=== PATIENT | female | born 1940 | race Caucasian/White ===

== ENCOUNTER 2016-10-07 17:13 | Inpatient (IN) | payer MEDICARE, OTHER ==
--- NOTE | ~2016-10-07 | CO ---
Unit #: [id number] #: [id number] Patient: JULITA BOYCE [id number] [address] [place], [place] [address] [id number] I MR#: [id number] NAME: JULITA BOYCE ROOM: 547 Age: 76 Sex: F Admission Date: 10/07/2016 : 1940 Attending Physician: Xi Rider M.D. Primary Care Physician: Luis Means M.D. Consultation Date: 10/08/2016 CONSULTATION REPORT REASON FOR CONSULT Hypoxia. HISTORY OF PRESENT ILLNESS This is a very pleasant 76-year-old female with past medical history significant for morbid obesity, obstructive sleep apnea, hypertension and hyperlipidemia who presented to the emergency room with shortness of breath. The patient stated that she is being progressively getting dyspneic for the last 4 days associated with intermittent cough productive sometimes of dark sputum. She denies any fever, chills or night sweats. Of note, also, she stated that she has been noticing bilateral lower extremity edema for a while. She denies taking any diuretics at home or having a history of congestive heart failure. In the emergency room her saturation was significantly low, and her pO2 was 56 on Venturi mask. PAST MEDICAL HISTORY 1. Morbid obesity. 2. Seizure disorder. 3. Obstructive sleep apnea. 4. Questionable COPD. 5. TIA. 6. Hypertension. 7. Hyperlipidemia. PAST SURGICAL HISTORY 1. Hysterectomy. 2. Bladder surgery. 3. Right foot surgery. SOCIAL HISTORY Patient is a former smoker. No history of alcohol or drug abuse. She stated that she quit smoking 3 years ago, but she smoked for a long time. FAMILY HISTORY [place]. ALLERGIES No known drug allergies. HOME MEDICATIONS 1. HCTZ. 2. Dilantin. Unit #: [id number] #: [id number] Patient: JULITA BOYCE 3. Simvastatin. REVIEW OF SYSTEMS Twelve-point review of systems was obtained and was negative except for what was mentioned in the HPI. PHYSICAL EXAMINATION GENERAL: The patient is in no acute distress, but she appears dyspneic, even on minimal activity. VITAL SIGNS: Blood pressure 132/61, respiratory rate 18, O2 saturation 96% on 8 liters Oxymizer. HEENT: Atraumatic, normocephalic. PERRLA, EOMI. NECK: Supple. No JVD. No lymphadenopathy. CHEST: Bilateral coarse rhonchi. HEART: S1, S2. No murmur. ABDOMEN: Soft, nontender. Bowel sounds positive. No hepatosplenomegaly. EXTREMITIES: With +1 edema in the lower extremities. SKIN: No rashes. OFFICE CHAIR ASSEMBLER: Awake, alert, oriented x3. No focal motor/sensory deficits. LABS AND OTHER TESTS LABS: Creatinine is 0.9, calcium 8. White blood count 21.9, platelets 248. IMAGING: Chest x-ray is consistent with bilateral pneumonia. ASSESSMENT 1. Acute hypoxic respiratory failure. 2. Community-acquired pneumonia, gram-positive/atypical. 3. Rule out diastolic congestive heart failure. 4. Obstructive sleep apnea. 5. Morbid obesity. 6. Chronic anemia. 7. History of seizure. PLAN 1. The patient is currently on high amount of oxygen, up to 8 liter Oxymizer. Her chest x-ray is significant for diffuse bilateral dense pneumonia. 2. Will continue the patient on Rocephin and azithromycin pending culture. 3. I will start the patient on IV Bumex pending two-D echo and BNP; however, will keep in mind that BNP could be normal in obese patients. 4. Bronchodilator and mucolytics. 5. I will add IV steroid. 6. Counselled regarding importance of obtaining a sleep study as an outpatient. 7. PFTs and tapyj-2-ewerioguiom screening as an outpatient. 8. DVT prophylaxis. NOTE: I would like to thank you for allowing me to be part of this patient's care. Dictated by... Noel Shukla M.D. Unit #: [id number] #: [id number] Patient: JULITA BOYCE OLGA/vipul TD: 10/09/2016 13:37 JOB #: [id number] CONSULTATION REPORT Page 1 of 1 X NOEL SCHWARZ MD CONSULTATION REPORT
--- NOTE | ~2016-10-07 | CR63 ---
[facility] A Service of [facility] RADIOLOGY TEXT RESULTS PATIENT: JULITA BOYCE LOCATION: C2A 218-01 : 40 UNIT #: [id number] AGE: [address]: Brady Celaya MD SEX: F ORDER DR: [id number] [facility] [address] [place], [place] [address] [id number] I MR#: [id number] Acc #: [id number] NAME: JULITA BOYCE. : 1940 SEX: F STUDY DATE/TIME: 10/14/2016 12:55 UNIT: [facility] ROOM: 218 STUDY DESCRIPTION: CR Chest 2 View Attending Physician: Brady Celaya M.D. Ordering Physician: Lb Shukla M.D. Primary Care Physician: Luis Means M.D. MEDICAL IMAGING REPORT This report is preliminary unless electronic signature is present EXAM Two-view chest, 10/14/2016. HISTORY Evaluate for emphysema. Short of air. Began 10/04/2016, 12 days ago. History of stroke and high cholesterol. TECHNIQUE AP and lateral radiographs of the chest are presented. COMPARISON 10/07/2016. Comparison also made to CT examination 10/10/2016. FINDINGS No acute-appearing bony abnormality seen. There is stable cardiac enlargement. The left lung shows increased left retrocardiac density concerning for increased airspace disease in this region. Nonspecific appearance which could involve components of atelectasis and pneumonia. The right lung shows improved airspace disease in the right upper lobe. More band-like densities in the lower portion of the right upper lobe probably reflect atelectasis and some components of ongoing pneumonia in this region. Continued followup to resolution is recommended. There is decreased patchy airspace disease at the right lung base but there continues to be dense right infrahilar opacification. Prior CT examination showed soft tissue density in this region of unclear exact etiology, possibly adenopathy or possibly infrahilar mass lesion. If the patient is a candidate for iodinated contrast material, the right infrahilar region would best be further evaluated with contrast-enhanced CT examination. Certainly continued short-interval plain radiographic followup is strongly recommended. There is no pneumothorax. There is no definite pleural effusion. [facility] A Service of [facility] RADIOLOGY TEXT RESULTS PATIENT: JULITA BOYCE LOCATION: [facility] 218-01 : 40 UNIT #: [id number] AGE: [address]: Brady Celaya MD SEX: F ORDER DR: Dictated by... Milton David M.D. THIS IS AN ELECTRONICALLY VERIFIED REPORT Milton David M.D. at 10/15/2016 6:42 PM ALAN/talon TD: 10/14/2016 16:55 JOB #: [id number] MEDICAL IMAGING REPORT Page 1 of 1 COPY
--- NOTE | ~2016-10-07 | CR72 ---
[facility] A Service of [facility] & [facility] RADIOLOGY TEXT RESULTS PATIENT: JULITA BOYCE LOCATION: [place] [address] : 40 UNIT #: [id number] AGE: [address]: Xi Rider MD SEX: F ORDER DR: [id number] [facility] [address] [place], [place] [address] [id number] E MR#: [id number] Acc #: [id number] NAME: JULITA BOYCE. : 1940 SEX: F STUDY DATE/TIME: 10/07/2016 17:59 UNIT: [facility] ROOM: STUDY DESCRIPTION: CR Chest Single View Portable Attending Physician: Nathan Roberts M.D. Ordering Physician: Nathan Roberts M.D. Primary Care Physician: Luis Means M.D. MEDICAL IMAGING REPORT This report is preliminary unless electronic signature is present EXAM Portable chest. HISTORY Shortness of air x4 days. History of stroke, symptoms worse today. COMPARISON 07/15/16 FINDINGS Portable view of the chest demonstrates extensive parenchymal opacity in the right upper lobe most concerning for developing right upper lobe pneumonia. Probable small amount of right-sided pleural fluid. Small amount of right basilar atelectasis or infiltrate. The left lung remains here clear. Stable cardiomegaly and mild aortic atherosclerotic change. No invasive tubes or lines. No pneumothorax. Dictated by... Callum London M.D. THIS IS AN ELECTRONICALLY VERIFIED REPORT Callum London M.D. at 10/08/2016 2:46 PM Alem TD: 10/07/2016 18:49 JOB #: [id number] MEDICAL IMAGING REPORT Page 1 of 1 COPY
--- NOTE | ~2016-10-07 | CT57 ---
[facility] A Service of [facility] RADIOLOGY TEXT RESULTS PATIENT: JULITA BOYCE LOCATION: [facility] 218-01 : 40 UNIT #: [id number] AGE: [address]: Xi Rider MD SEX: F ORDER DR: [id number] [facility] [address] [place], [place] [address] [id number] I MR#: [id number] Acc #: [id number] NAME: JULITA BOYCE. : 1940 SEX: F STUDY DATE/TIME: 10/10/2016 17:12 UNIT: C5B ROOM: [facility] STUDY DESCRIPTION: CT Chest Wo Cont Attending Physician: Xi Rider M.D. Ordering Physician: Jp Anne M.D. Primary Care Physician: Luis Means M.D. MEDICAL IMAGING REPORT This report is preliminary unless electronic signature is present EXAM CT chest without contrast. HISTORY Shortness of air for 4 days, history of hypertension, stroke. FINDINGS Axial images performed through the chest without contrast. Multiplanar reconstructed images reviewed at a workstation. This CT exam was performed with one or more of the following radiation dose reduction techniques: automatic exposure control, adjustment of mA and/or kV according to patient size, and iterative reconstruction. There is extensive airspace disease right upper lobe and also within the posterior segment right lower lobe may represent acute infectious pneumonia. There is a small right pleural effusion. This appears superimposed on background centrilobular emphysema and paraseptal emphysema. Trachea and bronchi unremarkable. Mild cardiomegaly. There is prominence of the right infrahilar vessels and tissue and this could represent adenopathy and/or mass. Recommend imaging follow up following appropriate treatment of the patient's pneumonia. There is some patchy peripheral opacities left lung. Visualized upper abdomen unremarkable. Cortical scarring noted in the right kidney. Osseous structures, thoracic inlet unremarkable. IMPRESSION 1. Extensive airspace disease right upper lobe and also within the right lower lobe posterior segment. This is most likely infectious in etiology. Recommend clinical imaging follow up to resolution. This appears superimposed on background emphysema. 2. Prominence of the right infrahilar vessels and tissues. It is unclear whether this represents adenopathy or mass. Imaging follow up with contrasted chest CT following appropriate medical therapy and STS. [facility] A Service of [facility] RADIOLOGY TEXT RESULTS PATIENT: JULITA BOYCE LOCATION: [place] [address] : 40 UNIT #: [id number] AGE: [address]: Xi Rider MD SEX: F ORDER DR: clearing of the patient's airspace disease is recommended to exclude underlying mass lesion. Dictated by... Callum London M.D. THIS IS AN ELECTRONICALLY VERIFIED REPORT Callum London M.D. at 10/11/2016 9:15 PM Alem TD: 10/10/2016 21:21 JOB #: [id number] MEDICAL IMAGING REPORT Page 1 of 1 COPY
--- NOTE | ~2016-10-07 | OR ---
Unit #: [id number] #: [id number] Patient: JULITA BOYCE [id number] [address] [place], [place] [address] [id number] I MR#: [id number] NAME: JULITA BOYCE. ROOM: 218 Date of Procedure: 10/12/2016 Admission Date: 10/07/2016 Surgeon: Noel Shukla M.D. : 1940 Attending Physician: Brady Celaya M.D. Primary Care Physician: Luis Means M.D. PROCEDURE OPERATIVE NOTE POSTOPERATIVE DIAGNOSES 1. Diffuse thick yellowish mucous secretions at the level of the jose, right main bronchus, right lower lobe, mildly in the right upper lobe, left lower lobe. 2. No over endobronchial mass. PROCEDURE PERFORMED Diagnostic bronchoscopy with bronchoalveolar lavage from the right upper lobe. INDICATION FOR PROCEDURE Pneumonia and rule out endobronchial mass. PREMEDICATION MAC sedation. COMPLICATIONS None. DESCRIPTION OF THE PROCEDURE An informed consent was obtained from the patient herself after explaining the benefits and risks of this procedure. The patient was prepped and positioned in a proper way and her throat was sprayed with lidocaine. Then, she was premedicated with propofol. Then, the bronchoscope was advanced through the oral cavity and, at the level of the vocal cord, 10 mL of 2% lidocaine was instilled. Then, the bronchoscope was advanced through the vocal cord into the trachea and then, at the level of the jose, 1% lidocaine was instilled. Then, the bronchoscope was advanced into the right main bronchus and the right upper lobe, right lower lobe and right middle lobe were examined thoroughly. Then, the bronchoscope was retracted and then readvanced into the left main bronchus and the left upper lobe, lingula and left lower lobe were examined also thoroughly. Then, the bronchoscope was retracted to the level of the jose and then examined in the trachea, again. Findings as above. The patient had no endobronchial mass but had a lot of secretions. The bronchoscope was retracted completely out and the patient tolerated her procedure well with no immediate complication. Unit #: [id number] #: [id number] Patient: JULITA BOYCE Dictated by... Noel Shukla M.D. EA/dash TD: 10/12/2016 09:35 JOB #: [id number] PROCEDURE OPERATIVE NOTE Page 1 of 1 X NOEL SCHWARZ MD X PROCEDURE OPERATIVE NOTE
--- NOTE | ~2016-10-07 | DS ---
Unit #: [id number] #: [id number] Patient: JULITA BOYCE [id number] [place] [address] [facility]. [place], [place] [address] [id number] I MR#: [id number] NAME: JULITA BOYCE. ROOM: 218 Age: 76 Sex: F Admission Date: 10/07/2016 : 1940 Discharge Date: 10/14/2016 Attending Physician: Brady Celaya M.D. Primary Care Physician: Luis Means M.D. DISCHARGE SUMMARY DISCHARGE DIAGNOSES 1. Acute hypoxic respiratory failure. 2. Pneumonia. 3. Acute exacerbation of chronic obstructive pulmonary disease. 4. Rvwzt-lk-cursato diastolic heart failure. 5. Pulmonary hypertension. 6. Obstructive sleep apnea. HOSPITAL COURSE The patient is a 76-year-old female with COPD who presented to [facility] emergency department secondary to some shortness of air that began 4 days prior to presentation. By the time she arrived to the emergency department, she was noted to be saturating 88% on 4 liters. As a result she was placed on 50% Venturi mask and arterial blood gas showed a pO2 of 56. Chest x-ray was concerning for pneumonia and procalcitonin was elevated at 2.31 consistent with the same. Patient was admitted started on IV antibiotics Rocephin and Zithromax. The patient has been slow to improve but has indeed improved. The following admission, she was weaned to Oxymizer. She remained on Oxymizer for 3 days and at this time has been on nasal cannula for 4 days. Her oxygen needs do remain high at 5 liters. She does saturate in the 80s with ambulation. Room air oxygen saturations are in the low 80s. Repeat chest x-ray is relatively unchanged and patient is noted on CT to have extensive airspace disease in the right upper lobe and within the right lower lobe posterior segment. She is noted to have prominence of the right infrahilar vessels and tissues. It is unclear whether it was adenopathy or mass. A followup CT is recommended. At this time, the patient is requesting discharge. She is felt reasonably safe to go home on nasal cannula at 5 liters and with home health. She is being discharged on four more days of oral antibiotics, a prednisone taper and Bumex for her diastolic heart failure/pulmonary hypertension. The patient is, however, being discharged simply because she has requested discharge and states that she does not want to be here any longer. She was offered the opportunity to continue her convalescence but has adamantly refused. This has been discussed with both her and her . I have discussed this with Dr. Shukla who also agrees with her discharge after again informing her that provided that it is her choice. She might otherwise benefit from rehab. DISCHARGE MEDICATIONS 1. Combivent two puffs t.i.d. Unit #: [id number] #: [id number] Patient: JULITA BOYCE 2. Prednisone taper. 3. Lotrel 10/40 one p.o. daily. 4. Bumex 1 mg p.o. b.i.d. 5. Zocor 20 mg daily. 6. Dilantin 400 mg p.o. h.s. 7. Plavix 75 mg daily. 8. Potassium chloride 20 mEq p.o. daily. 9. Omnicef 300 mg p.o. b.i.d. times 4 more days. FOLLOWUP 1. The patient is being discharged home with home health and home oxygen. 2. She should follow up with Dr. Jp Anne in one week. 3. She should follow up with her primary care provider at the earliest available appointment. Dictated by... Brady Celaya M.D. NIC/effie TD: 10/15/2016 18:06 JOB #: [id number] DISCHARGE SUMMARY Page 1 of 1 X Brady Celaya MD X DISCHARGE SUMMARY
--- NOTE | ~2016-10-07 | HP ---
Unit #: [id number] #: [id number] Patient: JULITA BOYCE [id number] [address] [address] [id number] I MR#: [id number] NAME: JULITA BOYCE. ROOM: 547 Age: 76 Sex: F Admission Date: 10/07/2016 : 1940 Attending Physician: Domi Welch M.D. Primary Care Physician: Luis Means M.D. HISTORY AND PHYSICAL CHIEF COMPLAINT Shortness of air x4 days. HISTORY OF PRESENT ILLNESS The patient is a 76-year-old female with a past medical history of seizure disorder, obstructive sleep apnea, hypertension, hyperlipidemia who presented to the emergency department for evaluation of the above. The patient has had a 3 to 4 day history of increasing shortness of breath and intermittently productive cough. She denies any fever. She did have chest pain in association with cough during the course of her evaluation in the emergency department. She has had decreased appetite but no vomiting or diarrhea. No urinary symptoms aside from decreased urine output. In the emergency department, oxygen saturation was 88% on 4 L. She was placed on 50% Venturi mask. Initial arterial blood gas showed pH of 7.471, pCO2 32.4, pO2 of 56.5. Chest x-ray shows findings concerning for pneumonia. She was given Rocephin and azithromycin in the emergency department, as well as 1 liter of normal saline, 125 mg of Solu-Medrol. She is being admitted to [facility] for evaluation and further treatment. PAST MEDICAL HISTORY 1. Admission to [facility] 03/26/2014 through 03/30/2014 for pneumonia and respiratory failure. Per the discharge summary there was some question of memory issues. She was apparently see by Dr. Wood and advised to followup on an outpatient basis with Dr. Obregon. She did not followup. 2. Seizure disorder maintained on Dilantin. The patient's last seizure was more than 10 years ago. She does not currently see a neurologist. 3. Obstructive sleep apnea, not on CPAP. 4. Likely COPD. 5. TIA. 6. Hypertension. 7. Hyperlipidemia. PAST SURGICAL HISTORY 1. Hysterectomy. 2. Bladder surgery. 3. Right foot surgery. SOCIAL HISTORY The patient lives with her . She is a former smoker. There is no Unit #: [id number] #: [id number] Patient: JULITA BOYCE alcohol use. She walks without assistance. Her code status is a full code. FAMILY HISTORY Notable for her mother dying of a myocardial infarction in her 60s. ALLERGIES No known allergies. HOME MEDICATIONS Dilantin, hydrochlorothiazide, Lotrel, Plavix, simvastatin. Home medications will need to be reviewed and verified. REVIEW OF SYSTEMS A complete review of systems is negative except as indicated in the HPI. PHYSICAL EXAMINATION VITAL SIGNS: Temperature is 100.7, pulse 114, respirations 22, blood pressure 129/93, oxygen saturation 88% on 4 L. GENERAL: The patient is a female who is awake and alert. HEENT: Head is atraumatic. Mucous membranes are moist. NECK: Supple. Trachea is midline. CARDIOVASCULAR: Regular rate and rhythm. LUNGS: Demonstrate a few scattered expiratory wheezes. Breathing is mildly labored. The patient is currently on 50% Venturi mask and continues to take the mask off during the time of my evaluation. ABDOMEN: Soft, nontender with bowel sounds present in all four quadrants. EXTREMITIES: Show 1+ pitting edema bilaterally. NEUROLOGIC: The patient is oriented to person only. She follows commands. PSYCH: Mood and affect are normal. The patient is cooperative. SKIN: Skin of examined areas is warm and dry. DIAGNOSTIC STUDIES CARDIOLOGY STUDIES: EKG shows sinus tachycardia with a rate of 110 BPM. IMAGING STUDIES: Chest x-ray shows extensive parenchymal opacity in the right upper lobe concerning for right upper lobe pneumonia with probable small right-sided pleural fluid. LABORATORY STUDIES: Arterial blood gas shows pH 7.471, pCO2 32.4, pO2 56.5 on 50% Venturi mask. Troponin is less than 0.05. Complete blood count is notable for white blood cell count of 19.1, lactic acid 1.7. Dilantin level 6.7. Comprehensive metabolic panel notable for a chloride of 98, glucose 187, BUN and creatinine 27 and 1 respectively, calcium is 8.3, AST 47, albumin 3.2, BNP is 132. ASSESSMENT The patient is a 76-year-old female with 1. Acute respiratory failure, hypoxic. 2. Pneumonia, community acquired. The patient received Rocephin and azithromycin in the emergency department. 3. Sepsis with initial lactic acid of 1.7. The patient received 1 liter of normal saline in the emergency department. 4. Likely COPD with exacerbation. The patent received 125 mg of Solu-Medrol in the emergency department. 5. Altered mental status. The patient's states that at baseline she "does not keep track of dates." But would typically know the year. 6. Seizure disorder maintained on Dilantin. Unit #: [id number] #: [id number] Patient: JULITA BOYCE 7. Obstructive sleep apnea, noncompliant with CPAP. 8. Hypertension. 9. Hyperlipidemia. 10. Former smoker. PLANS 1. Admit to an intermediate level. 2. Normal saline at 100 mL an hour. 3. Change to Oxymizer. 4. Repeat ABG 30 minutes after Oxymizer placed. 5. Consult Dr. Edwards regarding acute respiratory failure. 6. Blood cultures x2. 7. Sputum culture and sensitivity. 8. Procalcitonin level. 9. Rocephin and azithromycin for community acquired pneumonia pending further workup. 10. DuoNeb. 11. Solu-Medrol 80 mg IV q.12 hours. 12. Sepsis protocol with repeat lactic acid. 13. Serial cardiac enzymes. 14. TSH, B12, and folate. 15. Neuro checks. 16. Bedrest. 17. Fall precautions. 18. Check urinalysis. 19. Repeat labs in the morning. 20. P.R.N. Tylenol. 21. Additional workup and consultants based on above. 22. Regarding code status the patient is a full code. 11. 1. Dictated by Domi Welch M.D. TONG/carmella TD: 10/08/2016 06:00 JOB #: [id number] HISTORY AND PHYSICAL Page 1 of 1 X Domi Welch MD X HISTORY AND PHYSICAL
--- NOTE | ~2016-10-07 | EKG ---
PATIENT: JULITA BOYCE UNIT #: [id number] Ventricular Rate: 110 BPM Atrial Rate: 110 BPM P-R Interval: 146 ms QRS Duration: 74 ms Q-T Interval: 310 ms QTC Calculation(Bezet): 419 ms P Mitchells: 101 degrees Calculated R Mitchells: 13 degrees Calculated T Mitchells: 26 degrees Diagnosis Line: Sinus tachycardia Diagnosis Line: Otherwise normal ECG Diagnosis Line: When compared with ECG of 26-MAR-2014 08:07, Diagnosis Line: No significant change was found Diagnosis Line: Confirmed by JAM SWANSON MD ([id number]) on Diagnosis Line: 10/08/2016 7:29:48 AM INTERPRETING MURIEL MALONE
--- NOTE | ~2016-10-07 | BMI ---
[facility] Nutrition Therapy DATE: 10/08/16 Patient: JULITA BOYCE Physician: ITZ Address: [address] Room/Bed: [address] [place] [address], Zip: [place] [address] Admit Date: 10/07/16 Date of : 40 Height: 5 8 Weight: 283 128.4 HIGH BMI NOTE: DX: 76 Y.O. FEMALE ADMITTED FOR SOA X 4 DAYS ANTHROPOMETRICS: 5'8", WT: 283# (129 KG), BMI: 43.0 DIET: HEALTHY HEART + VEGETARIAN DIET RECOMMENDATIONS: 1. CONTINUE CURRENT DIET ORDER ABOVE TO PROMOTE GRADUAL WEIGHT LOSS TOWARDS HEALTHY BMI (19.0-25.0) OR +/-10%IBW RD WILL F/U PER PROTOCOL Respectfully, NGUYEN HARMON MS, RD, LD [facility] Nutrition[facility] cc: client file
[~2016-10-07 17:13] MED LIST: AZITHROMYCIN500 MG PO; CEFTIN PO; COMBIVENT RESPIM4 GM IH; DILANTIN PO; HTN MEDS; LOTREL 10-40 M1 EACH PO; NAPROSYN-EC500 MG PO; PLAVIX PO; TYLENOL325 M1 PO; ZOCOR PO
[2016-10-07 17:50] LABS: ARTERIAL BLOOD GAS pH 7.471 (7.350-7.450)
[2016-10-07 17:51] LABS: ARTERIAL BLD GAS O2 SATURATION 89.9 % (90.0-100.0); ARTERIAL BLOOD GAS ALLEN TEST NORMAL; ARTERIAL BLOOD GAS ART SITE RIGHT RADIAL; ARTERIAL BLOOD GAS CARBOXY HB 1.7 %sat (0.0-9.0); ARTERIAL BLOOD GAS DELIVERY VENTURI MASK; ARTERIAL BLOOD GAS HCO3 23.6 mmol/L; ARTERIAL BLOOD GAS MET HB 0.6 %sat (0.0-2.0); ARTERIAL BLOOD GAS PCO2 32.4 mmHg (35.0-45.0); ARTERIAL BLOOD GAS PO2 56.5 mmHg (80.0-100); ARTERIAL DRAW? YES
[2016-10-07 18:11] LABS: POC - CKMB <1.0 ng/mL (0.0-7.9); POC - TROPONIN <0.05 ng/mL (<=0.05)
[2016-10-07 18:23] LABS: BASOPHIL# 0.1 X10e3 (0-0.3); BASOPHIL% 0.4 % (0-2.5); EOSINOPHIL% 0.1 % (0.0-7.0); HEMATOCRIT 37.9 % (35.0-45.0); HEMOGLOBIN 12.1 gm/dL (12.0-16.0); LYMPHOCYTE# 6.8 X10e3 (1.0-3.5); LYMPHOCYTE% 35.3 % (17.0-45.0); MEAN CELL VOLUME 86.3 FL (83-96); MEAN CORPUSCULAR HEMOGLOBIN 27.5 PG (28-34); MEAN CORPUSCULAR HGB CONC 31.9 g/dL (30-36); MEAN PLATELET VOLUME 8.4 FL (6.5-11.5); MONOCYTE# 1.5 X10e3 (0-1.0); MONOCYTE% 7.7 % (3.0-12.0); NEUTROPHIL# 10.8 X10e3 (1.5-7.1); NEUTROPHIL% 56.5 % (40-75); PLATELET COUNT 237 X10e3 (140-420); RED BLOOD COUNT 4.39 X10e (3.90-5.30); WHITE BLOOD COUNT 19.1 X10e3 (4.0-10.5)
[2016-10-07 18:25] LABS: DIFF IND YES
[2016-10-07 18:52] LABS: ALBUMIN SERUM 3.2 g/dL (3.5-5.0); BILIRUBIN, DIRECT 0.5 mg/dL (0.0-0.2); BILIRUBIN,INDIRECT 0.9 mg/dL (0.0-0.9); BILIRUBIN,TOTAL 1.4 mg/dL (0.2-2.0); CALCIUM SERUM 8.3 mg/dL (8.4-10.2); GLOM FILT RATE Estimated 54.7 mL/min (>60); POTASSIUM 4.1 mmol/L (3.5-5.1); PROTEIN TOTAL SERUM 6.9 g/dL (6.0-8.3)
[2016-10-07 19:04] LABS: INR 1.2; PARTIAL THROMBOPLASTIN TIME 29.4 SECONDS (23.5-31.3); PROTHROMBIN TIME (PATIENT) 12.6 SECONDS (10.0-11.7)
[2016-10-07 19:07] LABS: PLATELET ESTIMATE NORMAL (NORMAL)
[2016-10-07 20:17] LABS: ARTERIAL BLD GAS O2 SATURATION 92.2 % (90.0-100.0); ARTERIAL BLOOD GAS CARBOXY HB 1.7 %sat (0.0-9.0); ARTERIAL BLOOD GAS HCO3 23.2 mmol/L; ARTERIAL BLOOD GAS PCO2 35.8 mmHg (35.0-45.0); ARTERIAL BLOOD GAS PO2 69.4 mmHg (80.0-100); ARTERIAL BLOOD GAS pH 7.421 (7.350-7.450)
[2016-10-07 20:18] LABS: ARTERIAL BLOOD GAS ALLEN TEST NORMAL; ARTERIAL BLOOD GAS ART SITE LEFT RADIAL; ARTERIAL BLOOD GAS DELIVERY OXYMIZER; ARTERIAL BLOOD GAS MET HB 0.7 %sat (0.0-2.0); ARTERIAL DRAW? YES
[2016-10-07 21:14] LABS: PROCALCITONIN 2.31 NG/ML
[2016-10-07 21:35] LABS: FOLATE (FOLIC ACID) >23.3 ng/mL (>5.8)
[2016-10-08 00:47] LABS: CK TOTAL 45 IU/L (26-140)
[2016-10-08 03:14] LABS: URINE SOURCE CLEAN CATCH
[2016-10-08 03:24] LABS: URINE APPEARANCE CLOUDY; URINE BLOOD NEG (NEG); URINE COLOR DK YELLOW; URINE GLUCOSE NEG (NEG); URINE KETONE TRACE (NEG); URINE LEUKOCYTE ESTERASE TRACE (NEG); URINE NITRATE NEG (NEG); URINE PROTEIN 1+ (NEG); URINE SPECIFIC GRAVITY 1.026 (1.003-1.035)
[2016-10-08 03:25] LABS: URINE BACTERIA AUWI NEG (NEGATIVE); URINE SQUAMOUS EPITHELIAL CELL MOD /[HPF]
[2016-10-08 03:42] LABS: URINE BILIRUBIN NEG (NEG)
[2016-10-08 06:29] LABS: HEMATOCRIT 33.6 % (35.0-45.0); HEMOGLOBIN 10.8 gm/dL (12.0-16.0); MEAN CELL VOLUME 85.9 FL (83-96); MEAN CORPUSCULAR HEMOGLOBIN 27.6 PG (28-34); MEAN CORPUSCULAR HGB CONC 32.1 g/dL (30-36); MEAN PLATELET VOLUME 8.1 FL (6.5-11.5); RED BLOOD COUNT 3.91 X10e (3.90-5.30); RED CELL DISTRIBUTION WIDTH 20.1 % (11.0-15.5); WHITE BLOOD COUNT 20.4 X10e3 (4.0-10.5)
[2016-10-08 07:12] LABS: CK TOTAL 52 IU/L (26-140)
[2016-10-08 07:47] LABS: ALBUMIN SERUM 2.6 g/dL (3.5-5.0); BILIRUBIN,TOTAL 0.7 mg/dL (0.2-2.0); CALCIUM SERUM 7.8 mg/dL (8.4-10.2); CREATININE SERUM 0.8 mg/dL (0.6-1.4); GLOM FILT RATE Estimated 71.7 mL/min (>60); POTASSIUM 3.6 mmol/L (3.5-5.1); PROTEIN TOTAL SERUM 5.7 g/dL (6.0-8.3)
[2016-10-09 06:39] LABS: BUN/CREATININE RATIO 31.11; CREATININE SERUM 0.9 mg/dL (0.6-1.4); GLOM FILT RATE Estimated 62.2 mL/min (>60); MAGNESIUM 2.2 mg/dL (1.6-3.0); POTASSIUM 3.5 mmol/L (3.5-5.1)
[2016-10-09 07:58] LABS: LEGIONELLA AG URINE NEG (NEG)
[2016-10-09 08:14] LABS: HEMATOCRIT 33.8 % (35.0-45.0); HEMOGLOBIN 10.6 gm/dL (12.0-16.0); MEAN CELL VOLUME 85.6 FL (83-96); MEAN CORPUSCULAR HEMOGLOBIN 26.9 PG (28-34); MEAN CORPUSCULAR HGB CONC 31.5 g/dL (30-36); RED BLOOD COUNT 3.94 X10e (3.90-5.30); RED CELL DISTRIBUTION WIDTH 19.8 % (11.0-15.5); WHITE BLOOD COUNT 21.9 X10e3 (4.0-10.5)
[2016-10-10 05:56] LABS: HEMATOCRIT 31.5 % (35.0-45.0); HEMOGLOBIN 9.9 gm/dL (12.0-16.0); MEAN CORPUSCULAR HEMOGLOBIN 27.1 PG (28-34); MEAN CORPUSCULAR HGB CONC 31.5 g/dL (30-36); MEAN PLATELET VOLUME 8.2 FL (6.5-11.5); RED BLOOD COUNT 3.66 X10e (3.90-5.30); RED CELL DISTRIBUTION WIDTH 19.8 % (11.0-15.5); WHITE BLOOD COUNT 21.6 X10e3 (4.0-10.5)
[2016-10-10 06:24] LABS: ALBUMIN SERUM 2.5 g/dL (3.5-5.0); BILIRUBIN,TOTAL 0.1 mg/dL (0.2-2.0); BUN/CREATININE RATIO 28.75; CALCIUM SERUM 7.6 mg/dL (8.4-10.2); CREATININE SERUM 0.8 mg/dL (0.6-1.4); GLOM FILT RATE Estimated 71.7 mL/min (>60); MAGNESIUM 1.9 mg/dL (1.6-3.0); POTASSIUM 3.6 mmol/L (3.5-5.1)
[2016-10-12 08:05] LABS: HEMATOCRIT 32.6 % (35.0-45.0); HEMOGLOBIN 10.4 gm/dL (12.0-16.0); MEAN CORPUSCULAR HEMOGLOBIN 27.9 PG (28-34); MEAN PLATELET VOLUME 8.1 FL (6.5-11.5); RED BLOOD COUNT 3.74 X10e (3.90-5.30); RED CELL DISTRIBUTION WIDTH 20.3 % (11.0-15.5); WHITE BLOOD COUNT 17.2 X10e3 (4.0-10.5)
[2016-10-12 08:36] LABS: CALCIUM SERUM 8.2 mg/dL (8.4-10.2); CREATININE SERUM 0.8 mg/dL (0.6-1.4); GLOM FILT RATE Estimated 71.7 mL/min (>60); POTASSIUM 4.1 mmol/L (3.5-5.1)
[2016-10-12 10:48] LABS: BODY FLUID SOURCE BRONCHIAL LAVAGE
[2016-10-12 10:51] LABS: BODY FLUID APPEARANCE CLOUDY
[2016-10-13 05:53] LABS: HEMATOCRIT 32.9 % (35.0-45.0); HEMOGLOBIN 10.3 gm/dL (12.0-16.0); MEAN CELL VOLUME 87.2 FL (83-96); MEAN CORPUSCULAR HEMOGLOBIN 27.3 PG (28-34); MEAN CORPUSCULAR HGB CONC 31.2 g/dL (30-36); RED BLOOD COUNT 3.78 X10e (3.90-5.30); RED CELL DISTRIBUTION WIDTH 19.7 % (11.0-15.5); WHITE BLOOD COUNT 20.3 X10e3 (4.0-10.5)
[2016-10-13 07:00] LABS: BUN/CREATININE RATIO 17.14; CALCIUM SERUM 8.1 mg/dL (8.4-10.2); CREATININE SERUM 0.7 mg/dL (0.6-1.4); GLOM FILT RATE Estimated 84.2 mL/min (>60); POTASSIUM 3.8 mmol/L (3.5-5.1)
[2016-10-14 06:48] LABS: HEMOGLOBIN 10.9 gm/dL (12.0-16.0); MEAN CELL VOLUME 85.9 FL (83-96); MEAN CORPUSCULAR HEMOGLOBIN 28.3 PG (28-34); MEAN CORPUSCULAR HGB CONC 32.9 g/dL (30-36); MEAN PLATELET VOLUME 8.1 FL (6.5-11.5); RED BLOOD COUNT 3.84 X10e (3.90-5.30); RED CELL DISTRIBUTION WIDTH 20.4 % (11.0-15.5); WHITE BLOOD COUNT 22.6 X10e3 (4.0-10.5)
[2016-10-14 06:50] LABS: BUN/CREATININE RATIO 18.57; CALCIUM SERUM 8.2 mg/dL (8.4-10.2); CREATININE SERUM 0.7 mg/dL (0.6-1.4); GLOM FILT RATE Estimated 84.2 mL/min (>60); POTASSIUM 3.5 mmol/L (3.5-5.1)
[2016-10-14] MEDS ORDERED: K-DUR20 ME1 PO (17:26)
[2016-10-14] MEDS ORDERED: BUMEX1 MG PO (17:26)
[2016-10-14] MEDS ORDERED: OMNICEF300 MG PO (17:27)
[2016-10-14] MEDS ORDERED: PREDNISONE10 MG PO (17:28)
== END 2016-10-14 18:11 | disposition home health service (06) | DRG 853 ==
LOC: CED 17:13 → CEDOF 19:30 → CED 19:53 → CEDOF 22:53 → C5B 22:53 → C2A 10-11 16:01
PROVIDERS: Emergency Medicine; Family Medicine; Internal Medicine; Internal Medicine Pulmonary Disease
PROC: B24BYZZ Ultrasonography of Heart with Aorta using Other Contrast (ICD-10-PCS; 2016-10-08)
PROC: 0B9C8ZX Drainage of Right Upper Lung Lobe, Via Natural or Artificial Opening Endoscopic, Diagnostic (ICD-10-PCS; principal; 2016-10-12 08:27)
PROC: 0B9D8ZX Drainage of Right Middle Lung Lobe, Via Natural or Artificial Opening Endoscopic, Diagnostic (ICD-10-PCS; 2016-10-12 08:27)
DX: A41.9 Sepsis, unspecified organism (principal); J96.01 Acute respiratory failure with hypoxia; I50.33 Acute on chronic diastolic (congestive) heart failure; G92 Toxic encephalopathy; I27.2 Other secondary pulmonary hypertension; J18.9 Pneumonia, unspecified organism; I11.0 Hypertensive heart disease with heart failure; G40.909 Epilepsy, unspecified, not intractable, without status epilepticus; D64.89 Other specified anemias; Z68.42 Body mass index [BMI] 45.0-49.9, adult; J44.0 Chronic obstructive pulmonary disease with (acute) lower respiratory infection; J44.1 Chronic obstructive pulmonary disease with (acute) exacerbation; E66.01 Morbid (severe) obesity due to excess calories; G47.33 Obstructive sleep apnea (adult) (pediatric); E78.5 Hyperlipidemia, unspecified; Z86.73 Personal history of transient ischemic attack (TIA), and cerebral infarction without residual deficits; Z90.710 Acquired absence of both cervix and uterus; Z87.891 Personal history of nicotine dependence; D50.9 Iron deficiency anemia, unspecified; J20.9 Acute bronchitis, unspecified; Z66 Do not resuscitate
CPT/HCPCS: 36415; 36600; 71010; 71020; 71250; 80048; 80053; 80076; 80185; 81003; 82308; 82550; 82553; 82607; 82746; 82803; 83605; 83735; 83880; 84443; 84484; 85025; 85027; 85610; 85730; 87040; 87070; 87102; 87106; 87116; 87205; 87206; 87252; 87254; 87278; 87449; 87899; 88108; 88305; 89051; 93005; 93306; 94640; 94760; 96361; 96374; 97116; 97162; 97166; 97530; 97535; 99291; G8978-GP; G8979-GP; G8987-GO; G8988-GO; J0171; J0456; J0696; J2920; J2930